=== PATIENT | male | born 1935 | race Caucasian/White ===

== ENCOUNTER 2017-05-18 20:43 | Inpatient (IN) ==
[2017-05-18] MEDS ORDERED: ONDANSETRON 4 MG/2 ML VIAL IV STA ×2 (21:14→23:10)
[2017-05-18] MEDS ORDERED: PANTOPRAZOLE 40 MG VIAL IV STA (21:14)
[2017-05-18] MEDS ORDERED: ALUM/MAG/SIMETH/LIDO VISC 1:1 30 ML BOTTLE PO STA (21:14)
[2017-05-18] MEDS ORDERED: HYDROmorphone 2 MG/1 ML VIAL IV STA (21:14)
[2017-05-18] MEDS ORDERED: SODIUM CHLORIDE 0.9% 500 ML IV STA (21:14)
[2017-05-18 21:21] LABS: Basophils % 0.4 % (0.0-0.8); Eosinophils # 0.1 10*3/uL (0.0-0.87); Eosinophils % 1.9 % (0.00-10.9); Hematocrit 41.1 VOL% (42.0-52.0); Hemoglobin 13.5 GM/DL (14.0-18.0); Immature Granulocytes % 0.6 %; Immature Granulocytes Absolute 0.04 #; Lymphocytes # 2.1 10*3/uL (1.4-4.0); Lymphocytes % 31.1 % (21.2-54.2); Mean Corpuscular HGB Conc 32.8 GM/DL (32-36); Mean Corpuscular Hemoglobin 33 PG (27-34); Mean Corpuscular Volume 100.7 FL (87-102); Mean Platelet Volume 9.7 FL (9.6-12.0); Monocytes # 0.5 10*3/uL (0.11-0.8); Monocytes % 6.9 % (1.7-12.7); Neutrophils % 59.1 % (38.7-73.9); Platelet Count 189 T/CUMM (130-400); Red Blood Count 4.08 MC/CUMM (3.8-5.5); Red Cell Distribution Width 12.9 % (9.3-17.3); White Blood Count 6.8 T/CUMM (4-12)
[2017-05-18] MEDS ORDERED: HYDROmorphone 2 MG/1 ML VIAL ONE (21:32)
[2017-05-18] MEDS ORDERED: ONDANSETRON 4 MG/2 ML VIAL ONE ×2 (21:34→23:06)
[2017-05-18] MEDS ORDERED: PANTOPRAZOLE 40 MG VIAL IV ONE (21:34)
[2017-05-18 21:38] LABS: Alanine Aminotransferase 17 U/L (16-61); Albumin 3.5 G/DL (3.4-5.0); Alkaline Phosphatase 142 U/L (45-117); Amylase 55 U/L (25-115); Aspartate Amino Transferase 32 U/L (0-37); Bilirubin,Total < 0.39 MG/DL (0.2-1.0); Blood Urea Nitrogen 22 MG/DL (7-18); Calcium 8.6 MG/DL (8.5-10.1); Glucose 153 MG/DL (74-106); Osmolality,Calculated 286.3 MOS/KG (273-304); Potassium 4.1 MMOL/L (3.5-5.1); Sodium 141 MMOL/L (136-145); Total Protein 6.8 G/DL (6.4-8.3)
[2017-05-18 21:39] LABS: Troponin I Only 0.542 NG/ML (0.00-0.045)
[2017-05-18] MEDS ORDERED: ALUM/MAG/SIMETH/LIDO VISC 1:1 30 ML BOTTLE PO ONE (21:39)
[2017-05-18 22:36] LABS: Lactic Acid 2.3 MMOL/L (0.4-2.0)
[2017-05-18 22:41] LABS: Apearance,Urine Slightly Hazy (Clear); Bacteria,Urine Many /HPF (Few); Bilirubin,Urine Negative (Negative); Blood, Urine Small mg/dL (Negative); Glucose,Urine (UA) Negative (Negative); Ketones,Urine Negative (Negative); Mucus,Urine Occasional /LPF (Occasional); Nitrite,Urine Negative (Negative); Protein,Urine 30 MG/DL; RBC,Urine 7 /HPF (0-4); Urine Color Yellow (Yellow); Urine Specific Gravity 1.013 (1.001-1.035); Urine Urobilinogen < 2.0 EU/DL (0.2-1.0); WBC,Urine 113 /HPF (0-6)
[2017-05-18] MEDS ORDERED: NITROGLYCERIN 2% OINT 1 INCH/GM PACK TOP ONE (23:03)
[2017-05-18] MEDS ORDERED: METOPROLOL TARTRATE 5 MG/5 ML VIAL IV ONE ×2 (23:06→23:55)
[2017-05-18] MEDS ORDERED: MORPHINE 2 MG/1 ML SYRINGE ONE (23:07)
[2017-05-18] MEDS ORDERED: METOPROLOL TARTRATE 5 MG/5 ML VIAL IV STA ×2 (23:08→23:54)
[2017-05-18] MEDS ORDERED: MORPHINE 2 MG/1 ML SYRINGE IV STA (23:08)
[2017-05-18] MEDS ORDERED: cefTRIAXone 1,000 MG in SODIUM CHLORIDE 0.9% 100 ML IV STA (23:18)
[2017-05-18] MEDS ORDERED: cefTRIAXone 1,000 MG VIAL ONE (23:30)
[2017-05-18 23:33] LABS: PT Patient Result 10.7 SECS; Partial Thromboplastin Time 23.7 SECS (0-40)
[2017-05-19] MEDS ORDERED: ENOXAPARIN 100 MG/ML SYRINGE SUBCUT STA (00:08)
[2017-05-19] MEDS ORDERED: ASPIRIN 325 MG TABLET ONE (00:12)
[2017-05-19] MEDS ORDERED: ENOXAPARIN 80 MG/0.8 ML SYRINGE SUBCUT ONE (00:12)
[2017-05-19] MEDS ORDERED: ASPIRIN CHEW 81 MG TABLET PO STA (00:14)
[2017-05-19] MEDS ORDERED: ASPIRIN EC 325 MG TABLET PO STA (00:15)
[2017-05-19] MEDS ORDERED: MORPHINE 2 MG/1 ML SYRINGE IV STA (00:35)
[2017-05-19] MEDS ORDERED: MORPHINE 2 MG/1 ML SYRINGE ONE ×3 (00:36→04:10)
[2017-05-19] MEDS ORDERED: ONDANSETRON 4 MG/2 ML VIAL IV PRN (02:03)
[2017-05-19] MEDS ORDERED: SODIUM CHLORIDE 0.9% 1,000 ML IV SCH (02:03)
[2017-05-19] MEDS ORDERED: HYDROmorphone 2 MG/1 ML VIAL IV PRN (02:03)
[2017-05-19] MEDS ORDERED: PROMETHAZINE 25 MG/1 ML VIAL IM PRN (02:03)
[2017-05-19 03:05] LABS: Basophils % 0.5 % (0.0-0.8); Hematocrit 40.5 VOL% (42.0-52.0); Hemoglobin 13.7 GM/DL (14.0-18.0); Immature Granulocytes % 1.1 %; Immature Granulocytes Absolute 0.09 #; Lymphocytes # 1.1 10*3/uL (1.4-4.0); Lymphocytes % 13.3 % (21.2-54.2); Mean Corpuscular HGB Conc 33.8 GM/DL (32-36); Mean Corpuscular Hemoglobin 34 PG (27-34); Mean Corpuscular Volume 99.3 FL (87-102); Mean Platelet Volume 9.7 FL (9.6-12.0); Monocytes # 0.4 10*3/uL (0.11-0.8); Monocytes % 4.4 % (1.7-12.7); Neutrophils # 6.6 10*3/uL (1.4-7.4); Neutrophils % 80.7 % (38.7-73.9); Platelet Count 194 T/CUMM (130-400); Red Blood Count 4.08 MC/CUMM (3.8-5.5); White Blood Count 8.2 T/CUMM (4-12)
[2017-05-19 03:24] LABS: Risk Ratio 6.25
[2017-05-19 03:31] LABS: Albumin 3.6 G/DL (3.4-5.0); Bilirubin,Total 0.4 MG/DL (0.2-1.0); Calcium 8.3 MG/DL (8.5-10.1); Osmolality,Calculated 284.5 MOS/KG (273-304); Potassium 4.3 MMOL/L (3.5-5.1); Total Protein 6.9 G/DL (6.4-8.3)
[2017-05-19] MEDS ORDERED: METOPROLOL TARTRATE 25 MG TABLET PO ONE (04:00)
[2017-05-19] MEDS ORDERED: MORPHINE 2 MG/1 ML SYRINGE IV PRN (04:00)
[2017-05-19] MEDS ORDERED: METOPROLOL TARTRATE 25 MG TABLET ONE (04:16)
[2017-05-19] MEDS ORDERED: hydrALAZINE 20 MG/1 ML VIAL IV ONE (05:48)
[2017-05-19] MEDS ORDERED: hydrALAZINE 20 MG/1 ML VIAL ONE (05:51)
[2017-05-19] MEDS ORDERED: HYDROmorphone 2 MG/1 ML VIAL ONE (06:14)
[2017-05-19] MEDS ORDERED: ONDANSETRON 4 MG/2 ML VIAL ONE (06:17)
[2017-05-19] MEDS ORDERED: diphenhydrAMINE CAP 25 MG CAPSULE PO ONE (08:22)
[2017-05-19] MEDS ORDERED: POTASSIUM CHLORIDE RIDER 10 MEQ in PREMIX 1 EACH IV PRN (08:22)
[2017-05-19] MEDS ORDERED: DIAZEPAM 5 MG TABLET PO ONE (08:22)
[2017-05-19] MEDS ORDERED: MAGNESIUM SULF RIDER 2 GM in PREMIX 1 EACH IV PRN (08:22)
[2017-05-19] MEDS ORDERED: LOSARTAN 50 MG TABLET PO SCH (09:00)
[2017-05-19] MEDS ORDERED: ENOXAPARIN 80 MG/0.8 ML SYRINGE SUBCUT SCH (09:00)
[2017-05-19] MEDS ORDERED: METOPROLOL TARTRATE 25 MG TABLET PO SCH (09:00)
[2017-05-19] MEDS ORDERED: CLOPIDOGREL 75 MG TABLET PO SCH (09:00)
[2017-05-19] MEDS ORDERED: METOPROLOL SUCCINATE XL 25 MG TABLET PO SCH (09:00)
[2017-05-19] MEDS: ASPIRIN EC 81 MG TABLET PO SCH (09:16)
[2017-05-19] MEDS: DOCUSATE SODIUM 100 MG CAPSULE PO SCH ×2 (09:17→23:08)
[2017-05-19] MEDS: PANTOPRAZOLE 40 MG VIAL IV SCH ×2 (09:18→23:08)
[2017-05-19] MEDS ORDERED: CIPROFLOXACIN 400 MG/200 ML PREMIX IV ONE (09:43)
[2017-05-19] MEDS: CIPROFLOXACIN INJ 400 MG in PREMIX 1 EACH IV SCH ×2 (09:48→23:09)
[2017-05-19] MEDS ORDERED: MEPERIDINE 25 MG/1 ML VIAL ONE (11:04)
[2017-05-19] MEDS ORDERED: LIDOCAINE 1% 20 ML VIAL ONE (11:04)
[2017-05-19] MEDS ORDERED: MIDAZOLAM 2 MG/2 ML VIAL ONE (11:05)
[2017-05-19] MEDS ORDERED: METOPROLOL TARTRATE 5 MG/5 ML VIAL IV ONE ×2 (11:37→11:38)
[2017-05-19] MEDS ORDERED: HEPARIN 5,000 UNIT/1 ML VIAL ONE (11:49)
[2017-05-19] MEDS ORDERED: TIROFIBAN 5,000 MCG/100 ML PREMIX IV ONE (11:49)
[2017-05-19] MEDS ORDERED: TIROFIBAN 5,000 MCG/100 ML PREMIX IV SCH (11:58)
[2017-05-19] MEDS ORDERED: LABETALOL 20 MG/4 ML SYRINGE IV ONE (12:00)
[2017-05-19] MEDS ORDERED: NITROGLYCERIN DRIP 50 MG/250 ML BOTTLE IV ONE (12:19)
[2017-05-19] MEDS ORDERED: TICAGRELOR 90 MG TABLET ONE (13:02)
[2017-05-19] MEDS: CARVEDILOL 3.125 MG TABLET PO SCH ×2 (14:59→23:08)
[2017-05-19] MEDS ORDERED: oxyCODONE/ACETAMINOPHEN 5-325 MG TABLET PO PRN (15:29)
[2017-05-19 16:35] LABS: Troponin I Only > 200.000 NG/ML (0.00-0.045)
[2017-05-19] MEDS ORDERED: TEMAZEPAM 15 MG CAPSULE PO PRN (23:00)
[2017-05-19] MEDS: TICAGRELOR 90 MG TABLET PO SCH (23:08)
[2017-05-19 23:09] LABS: CKMB % 13.6 %
[2017-05-19] MEDS ORDERED: OXYMETAZOLINE 0.05% NASAL SPRAY 15 ML BOTTLE BOTH NARES PRN (23:21)
[2017-05-20] MEDS: ROSUVASTATIN 10 MG TABLET PO SCH ×2 (00:24→21:15)
[2017-05-20] MEDS: CARVEDILOL 3.125 MG TABLET PO SCH ×3 (05:10→13:29)
[2017-05-20 05:21] LABS: Basophils % 0.2 % (0.0-0.8); Eosinophils % 0.1 % (0.00-10.9); Hematocrit 35.6 VOL% (42.0-52.0); Hemoglobin 12.4 GM/DL (14.0-18.0); Immature Granulocytes % 0.9 %; Immature Granulocytes Absolute 0.09 #; Lymphocytes # 1.2 10*3/uL (1.4-4.0); Lymphocytes % 12.3 % (21.2-54.2); Mean Corpuscular HGB Conc 34.8 GM/DL (32-36); Mean Corpuscular Hemoglobin 34 PG (27-34); Mean Corpuscular Volume 98.1 FL (87-102); Mean Platelet Volume 10.1 FL (9.6-12.0); Neutrophils # 7.6 10*3/uL (1.4-7.4); Neutrophils % 76.5 % (38.7-73.9); Platelet Count 168 T/CUMM (130-400); Red Blood Count 3.63 MC/CUMM (3.8-5.5); Red Cell Distribution Width 13.3 % (9.3-17.3)
[2017-05-20 05:55] LABS: Calcium 8.3 MG/DL (8.5-10.1); Osmolality,Calculated 284.3 MOS/KG (273-304); Potassium 4.1 MMOL/L (3.5-5.1)
[2017-05-20 08:10] LABS: CKMB % 8.8 %
[2017-05-20] MEDS: ASPIRIN EC 81 MG TABLET PO SCH (08:33)
[2017-05-20] MEDS: TICAGRELOR 90 MG TABLET PO SCH ×2 (08:34→21:17)
[2017-05-20] MEDS: DOCUSATE SODIUM 100 MG CAPSULE PO SCH ×2 (08:34→21:17)
[2017-05-20] MEDS: PANTOPRAZOLE 40 MG VIAL IV SCH ×2 (08:34→21:17)
[2017-05-20] MEDS: CIPROFLOXACIN INJ 400 MG in PREMIX 1 EACH IV SCH (08:35)
[2017-05-20] MEDS ORDERED: LOSARTAN 25 MG TABLET PO SCH (09:00)
[2017-05-20] MEDS ORDERED: CARVEDILOL 12.5 MG TABLET PO ONE (14:07)
[2017-05-20] MEDS: ASPIRIN CHEW 81 MG TABLET PO SCH (14:36)
[2017-05-20] MEDS ORDERED: DILTIAZEM 30 MG TABLET PO SCH (17:00)
[2017-05-20] MEDS ORDERED: SODIUM CHLORIDE 0.9% 250 ML IV ONE ×2 (17:24→19:16)
[2017-05-20] MEDS ORDERED: CARVEDILOL 25 MG TABLET PO SCH (21:00)
[2017-05-20] MEDS: CIPROFLOXACIN 500 MG TABLET PO SCH (21:17)
[2017-05-20] MEDS: AMIODARONE 200 MG TABLET PO SCH (21:42)
[2017-05-20] MEDS: SODIUM CHLORIDE 0.9% 1,000 ML IV SCH (21:50)
[2017-05-20] MEDS: CARVEDILOL 6.25 MG TABLET PO SCH (21:52)
[2017-05-21 05:00] LABS: Basophils % 0.1 % (0.0-0.8); Hematocrit 30.7 VOL% (42.0-52.0); Hemoglobin 10.4 GM/DL (14.0-18.0); Immature Granulocytes % 1.4 %; Immature Granulocytes Absolute 0.11 #; Lymphocytes % 12.6 % (21.2-54.2); Mean Corpuscular HGB Conc 33.9 GM/DL (32-36); Mean Corpuscular Hemoglobin 34 PG (27-34); Mean Platelet Volume 10.1 FL (9.6-12.0); Monocytes # 0.5 10*3/uL (0.11-0.8); Monocytes % 6.4 % (1.7-12.7); Neutrophils # 6.1 10*3/uL (1.4-7.4); Neutrophils % 79.5 % (38.7-73.9); Platelet Count 130 T/CUMM (130-400); Red Blood Count 3.07 MC/CUMM (3.8-5.5); Red Cell Distribution Width 13.6 % (9.3-17.3); White Blood Count 7.7 T/CUMM (4-12)
[2017-05-21 05:32] LABS: Albumin 2.3 G/DL (3.4-5.0); Bilirubin,Total 0.9 MG/DL (0.2-1.0); Calcium 7.4 MG/DL (8.5-10.1); Osmolality,Calculated 287.1 MOS/KG (273-304); Potassium 3.7 MMOL/L (3.5-5.1); Total Protein 5.1 G/DL (6.4-8.3)
[2017-05-21] MEDS: SODIUM CHLORIDE 0.9% 1,000 ML IV SCH ×2 (08:35→17:30)
[2017-05-21] MEDS: PANTOPRAZOLE 40 MG VIAL IV SCH ×2 (08:37→20:49)
[2017-05-21] MEDS: TICAGRELOR 90 MG TABLET PO SCH ×2 (08:38→20:48)
[2017-05-21] MEDS: CIPROFLOXACIN 500 MG TABLET PO SCH ×2 (08:38→20:48)
[2017-05-21] MEDS: ASPIRIN CHEW 81 MG TABLET PO SCH (08:38)
[2017-05-21] MEDS: AMIODARONE 200 MG TABLET PO SCH ×2 (08:38→20:48)
[2017-05-21] MEDS: DOCUSATE SODIUM 100 MG CAPSULE PO SCH ×2 (08:38→20:48)
[2017-05-21] MEDS: CARVEDILOL 6.25 MG TABLET PO SCH ×2 (08:38→20:49)
[2017-05-21] MEDS: ROSUVASTATIN 10 MG TABLET PO SCH (20:47)
[2017-05-21] MEDS ORDERED: ACETAMINOPHEN 500 MG TABLET PO ONE (21:15)
[2017-05-21] MEDS: PIPERACILLIN/TAZOBACTAM 3,375 MG in SODIUM CHLORIDE 0.9% 100 ML IV SCH (22:34)
[2017-05-22 02:46] LABS: Basophils % 0.2 % (0.0-0.8); Hematocrit 33.9 VOL% (42.0-52.0); Immature Granulocytes % 2.9 %; Immature Granulocytes Absolute 0.18 #; Lymphocytes # 0.8 10*3/uL (1.4-4.0); Lymphocytes % 13.5 % (21.2-54.2); Mean Corpuscular HGB Conc 32.4 GM/DL (32-36); Mean Corpuscular Hemoglobin 33 PG (27-34); Mean Corpuscular Volume 101.5 FL (87-102); Mean Platelet Volume 10.2 FL (9.6-12.0); Monocytes # 0.5 10*3/uL (0.11-0.8); Monocytes % 8.8 % (1.7-12.7); Neutrophils # 4.6 10*3/uL (1.4-7.4); Neutrophils % 74.6 % (38.7-73.9); Platelet Count 144 T/CUMM (130-400); Red Blood Count 3.34 MC/CUMM (3.8-5.5); Red Cell Distribution Width 13.6 % (9.3-17.3); White Blood Count 6.1 T/CUMM (4-12)
[2017-05-22 03:55] LABS: Albumin 2.6 G/DL (3.4-5.0); Bilirubin,Total 0.5 MG/DL (0.2-1.0); Calcium 7.7 MG/DL (8.5-10.1); Osmolality,Calculated 288.3 MOS/KG (273-304); Potassium 3.7 MMOL/L (3.5-5.1); Total Protein 5.6 G/DL (6.4-8.3)
[2017-05-22 05:26] LABS: Lymphocytes 13 % (20-55); Metamyelocytes 1 %; Myelocytes 1 %; Segmented Neutrophils 78 % (50-85); Total Cells Counted 100
[2017-05-22 05:28] LABS: Ovalocytes 1+; Platelet Estimate Normal; Polychromasia Few
[2017-05-22] MEDS: PIPERACILLIN/TAZOBACTAM 3,375 MG in SODIUM CHLORIDE 0.9% 100 ML IV SCH ×3 (05:42→21:30)
[2017-05-22] MEDS: AMIODARONE 200 MG TABLET PO SCH ×2 (09:09→21:29)
[2017-05-22] MEDS: CARVEDILOL 6.25 MG TABLET PO SCH ×2 (09:09→21:30)
[2017-05-22] MEDS: PANTOPRAZOLE 40 MG VIAL IV SCH ×2 (09:09→23:05)
[2017-05-22] MEDS: ASPIRIN CHEW 81 MG TABLET PO SCH (09:09)
[2017-05-22] MEDS: TICAGRELOR 90 MG TABLET PO SCH ×2 (09:09→21:29)
[2017-05-22] MEDS: DOCUSATE SODIUM 100 MG CAPSULE PO SCH ×2 (09:09→21:29)
[2017-05-22] MEDS: CARVEDILOL 3.125 MG TABLET PO SCH ×2 (12:40→21:30)
[2017-05-22] MEDS: APIXABAN 2.5 MG TABLET PO SCH ×2 (15:06→21:29)
[2017-05-22] MEDS: ROSUVASTATIN 10 MG TABLET PO SCH (21:29)
[2017-05-23] MEDS: PIPERACILLIN/TAZOBACTAM 3,375 MG in SODIUM CHLORIDE 0.9% 100 ML IV SCH ×3 (06:03→21:27)
[2017-05-23 07:28] LABS: Albumin 2.6 G/DL (3.4-5.0); Bilirubin,Total 0.7 MG/DL (0.2-1.0); Calcium 8.7 MG/DL (8.5-10.1); Osmolality,Calculated 295.7 MOS/KG (273-304); Potassium 3.9 MMOL/L (3.5-5.1); Total Protein 5.6 G/DL (6.4-8.3)
[2017-05-23] MEDS: CARVEDILOL 3.125 MG TABLET PO SCH ×2 (08:03→21:00)
[2017-05-23] MEDS: APIXABAN 2.5 MG TABLET PO SCH ×2 (08:03→21:00)
[2017-05-23] MEDS: DOCUSATE SODIUM 100 MG CAPSULE PO SCH ×2 (08:03→21:01)
[2017-05-23] MEDS: AMIODARONE 200 MG TABLET PO SCH ×2 (08:03→21:01)
[2017-05-23] MEDS: TICAGRELOR 90 MG TABLET PO SCH ×2 (08:03→21:01)
[2017-05-23] MEDS: PANTOPRAZOLE 40 MG VIAL IV SCH ×2 (08:03→21:26)
[2017-05-23] MEDS: CARVEDILOL 6.25 MG TABLET PO SCH ×2 (08:04→21:26)
[2017-05-23] MEDS: ROSUVASTATIN 10 MG TABLET PO SCH (21:01)
[2017-05-24] MEDS: PIPERACILLIN/TAZOBACTAM 3,375 MG in SODIUM CHLORIDE 0.9% 100 ML IV SCH (06:47)
[2017-05-24 08:11] VITALS: BP 120/76
[2017-05-24] MEDS: APIXABAN 2.5 MG TABLET PO SCH (09:36)
[2017-05-24] MEDS: TICAGRELOR 90 MG TABLET PO SCH (09:36)
[2017-05-24] MEDS: AMIODARONE 200 MG TABLET PO SCH (09:36)
[2017-05-24] MEDS: CARVEDILOL 6.25 MG TABLET PO SCH (09:36)
[2017-05-24] MEDS: DOCUSATE SODIUM 100 MG CAPSULE PO SCH (09:36)
[2017-05-24] MEDS: CARVEDILOL 3.125 MG TABLET PO SCH (09:36)
[2017-05-24] MEDS: PANTOPRAZOLE 40 MG VIAL IV SCH (09:36)
== END 2017-05-24 11:19 | disposition home or self-care (01) | DRG 247 ==
LOC: EDUNIT# → EDBD → N.ED 20:43 → N.EDINP 05-19 07:03 → N.TELES 05-19 10:42
PROC: CLCCHCL (ICD-10-PCS; 2017-05-19 12:15)